=== PATIENT | female | born 1960 | race Hispanic/Latino ===

== ENCOUNTER 2022-04-21 07:42 | Emergency (ER) | payer OTHER ==
--- NOTE | 2022-04-21 08:49 | EDPHYS ---
Physician Documentation [facility] Name: Leanna Uribe Age: 61 yrs Sex: Female : 1960 Arrival Date: 04/21/2022 Time: 07:52 Bed 19 Private MD: ED Physician Yaima Solorzano HPI: 04/21 08:47 This 61 yrs old Female presents to ER via EMS with complaints of NO COMPLAINT. ma2 08:47 Chronic left knee pain for few months, denies any fever not trauma, patient states she ma2 does not want an x-ray. Historical: - Allergies: 07:56 No Known Allergies; ww - PMHx: 07:56 Coronary atherosclerosis; Cerebrovascular accident; Hypertensive disorder; Bipolar ww disorder; - Immunization history:: Adult Immunizations up to date. - Social history:: Smoking status: Patient reports the use of cigarette tobacco products, denies chronic smoking, but will smoke occasionally. - Family history:: not pertinent. ROS: 08:47 Constitutional: Negative for fever, chills, and weight loss. ma2 Exam: 08:47 Constitutional: This is a well developed, well nourished patient who is awake, alert, ma2 and in no acute distress. Chest/axilla: Normal chest wall appearance and motion. Nontender with no deformity. No lesions are appreciated. Cardiovascular: Regular rate and rhythm with a normal S1 and S2. No gallops, murmurs, or rubs. Normal PMI, no JVD. No pulse deficits. Respiratory: Lungs have equal breath sounds bilaterally, clear to auscultation and percussion. No rales, rhonchi or wheezes noted. No increased work of breathing, no retractions or nasal flaring. Abdomen/GI: Soft, non-tender, with normal bowel sounds. No distension or tympany. No guarding or rebound. No evidence of tenderness throughout. Back: No spinal tenderness. No costovertebral tenderness. Full range of motion. Skin: Warm, dry with normal turgor. Normal color with no rashes, no lesions, and no evidence of cellulitis. MS/ Extremity: Pulses equal, no cyanosis. Neurovascular intact. Full, normal range of motion. Neuro: Awake and alert, GCS 15, oriented to person, place, time, and situation. Cranial nerves II-XII grossly intact. Is old left hemiplegia from prior stroke Vital Signs: 07:52 BP 152 / 100; Pulse 92; Resp 18; Temp 97.5; Pulse Ox 96% ; Weight 90.26 kg; Height 5 ww ft. 0 in. (152.40 cm); Pain 0/10; 08:30 BP 125 / 79; Pulse 79; Resp 18; Pulse Ox 95% ; ww 09:45 BP 112 / 75; Pulse 82; Resp 18; Pulse Ox 96% ; ww 10:30 BP 138 / 76; Pulse 82; Resp 18; Pulse Ox 98% on R/A; ww 11:00 BP 126 / 75; Pulse 82; Resp 18; Pulse Ox 97% on R/A; ww 12:00 BP 151 / 80; Pulse 84; Resp 18; Pulse Ox 98% on R/A; ww 13:00 BP 139 / 82; Pulse 83; Resp 18; Pulse Ox 97% ; ww 07:52 Body Mass Index 38.86 (90.26 kg, 152.40 cm) ww MDM: 08:01 Patient medically screened. ma2 08:47 Differential diagnosis: contusion, abrasion, tendonitis. Data reviewed: vital signs, ma2 nurses notes. Counseling: I had a detailed discussion with the patient and/or guardian regarding: the historical points, exam findings, and any diagnostic results supporting the discharge/admit diagnosis, the presence of at least one elevated blood pressure reading (>120/80) during this emergency department visit, the need for outpatient follow up. Response to treatment: the patient's symptoms have markedly improved after treatment. 04/21 13:21 Order name: Diet Heart Healthy; Complete Time: : Administered Medications: No medications were administered Disposition Summary: 04/21/22 08:48 Discharge Ordered Location: Home ma2 Condition: Stable ma2 Diagnosis - Pain in left knee ma2 Followup: ma2 - With: Private Physician - When: Tomorrow - Reason: If symptoms return, Continuance of care Discharge Instructions: - Discharge Summary Sheet ma2 - Joint Pain ma2 Forms: - Medication Reconciliation Form ma2 - Thank You Letter ma2 - Antibiotic Education ma2 - Prescription Opioid Use ma2 Prescriptions: - Diclofenac Sodium 75 mg Oral Tablet Sustained Release - take 1 tablet by ORAL route 2 times per day; 30 tablet; Refills: 0, Product ma2 Selection Permitted Signatures: Yaima Solorzano MD MD ma2 Melissa Fairchild, RN RN ww
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
[2022-04-21 16:32] VITALS: TEMP 97.5
[2022-04-21 16:43] VITALS: BP 139/82; O2SAT 97
== END 2022-04-21 15:46 | disposition home or self-care (01) ==
LOC: ER 07:42
DX: M25.562 Pain in left knee (principal); I10 Essential (primary) hypertension; F17.210 Nicotine dependence, cigarettes, uncomplicated
CPT/HCPCS: 99283